=== PATIENT | female | born 1990 | race Caucasian/White ===

== ENCOUNTER 2017-01-25 17:36 | Emergency (ER) | payer OTHER ==
[~2017-01-25] VITALS: Ht 170.2 cm; Wt 97.4 kg
[2017-01-25 19:20] LABS: HEMATOCRIT 36.9 % (36.0-46.0); MCHC 33.1 G/DL (30.0-36.0); MCV 84.8 FL (83-99); MEAN PLAT.VOLUME 10.7 uM^3 (9.5-12.4); PLATELET COUNT 221 K/uL (156-360); RBC DIS.WIDTH-CV 13.3 % (11.8-14.6); RBC DIS.WIDTH-SD 41.3 % (39-53); RED BLOOD COUNT 4.35 M/uL (3.80-5.20); WHITE BLOOD COUNT 7.8 K/uL (4.1-10.2)
[2017-01-25 19:30] LABS: CHLORIDE 113 mEq/L (99-109); POTASSIUM 3.3 mEq/L (3.7-5.4); SODIUM 145 mEq/L (136-147)
[2017-01-25 19:32] LABS: GLUCOSE 96 mg/dL (70-99)
[2017-01-25 19:33] LABS: ANION GAP 10 MEQ/L (2-14)
[2017-01-25 19:36] LABS: GFR ESTIMATE (CALCULATED) > 59 mL/min/
[2017-01-25 19:37] LABS: UREA NITROGEN (BUN) 11 mg/dL (9-23)
[2017-01-25 19:39] VITALS: BP 141/90
[2017-01-25 19:44] LABS: QUANTITATIVE HCG 6177.4 MIU/ML
== END 2017-01-25 19:39 | disposition home or self-care (01) ==
LOC: EME 17:36
PROVIDERS: Physician Assistant
DX: N99.820 Postprocedural hemorrhage of a genitourinary system organ or structure following a genitourinary system procedure (principal); N93.9 Abnormal uterine and vaginal bleeding, unspecified; R10.30 Lower abdominal pain, unspecified; M54.89 Other dorsalgia
CPT/HCPCS: 76856; 80048; 84702; 85027; 99281; 99283